=== PATIENT | male | born 1970 | race Caucasian/White ===

== ENCOUNTER → 2017-06-17 | Outpatient (CLI) | payer OTHER ==
--- NOTE | 2017-06-17 08:59 | DIAGNOSTIC IMAGING REPORT ---
THYROID ULTRASONOGRAPHY CLINICAL HISTORY: MULTIPLE THYROID NODULES COMPARISON STUDY: 06/12/2016 FINDINGS: The right lobe measures 54 x 14 x 18 mm. The left lobe measures 44 x 16 x 17 mm. There are tiny bilateral thyroid nodules, none of which exceed 5 mm in size. These remain similar to the preceding study with the exception of a new 5 mm circumscribed hypoechoic left lobe nodule. 12 month follow-up is recommended. IMPRESSION: Multinodular thyroid gland with a new 5 mm hypoechoic left lobe nodule. 12 month follow-up is recommended. Electronically signed by: Avelino Gaviria M.D. 06/17/2017 8:58 AM Dictated Date/Time: 06/17/2017 8:55 AM
== END | disposition home or self-care (01) ==
LOC: C.ULTRBC 08:25
PROVIDERS: ATTEND Internal Medicine Geriatric Medicine
DX: E04.2 Nontoxic multinodular goiter (principal)

== ENCOUNTER → 2018-03-10 | Outpatient (CLI) | payer OTHER ==
[2018-03-10 17:26] LABS: BLOOD UREA NITROGEN 21 mg/dl (7-18); CALCIUM 9.1 mg/dl (8.5-10.1); CARBON DIOXIDE 23 mmol/L (21-32); CHOLESTEROL 244 mg/dl (0-200); CREATININE 1.23 mg/dl (0.60-1.40); GLUCOSE 100 mg/dl (70-99); POTASSIUM 3.9 mmol/L (3.5-5.1); SODIUM 138 mmol/L (136-145)
[2018-03-10 17:36] LABS: LDL CHOLESTEROL CALCULATED 147 mg/dl
== END | disposition home or self-care (01) ==
LOC: C.LABBC 15:06
PROVIDERS: ATTEND Internal Medicine Geriatric Medicine
DX: R30.0 Dysuria (principal); R10.9 Unspecified abdominal pain; E78.5 Hyperlipidemia, unspecified; E04.2 Nontoxic multinodular goiter

== ENCOUNTER → 2018-03-16 | Outpatient (CLI) | payer OTHER ==
--- NOTE | 2018-03-16 09:58 | DIAGNOSTIC IMAGING REPORT ---
ABDOMINAL ULTRASOUND COMPLETE HISTORY: Generalized abdominal pain.. COMPARISON: None. FINDINGS: Pancreas: The pancreatic tail is obscured by overlying bowel gas. The remaining portions of the pancreas are within normal limits. Liver: The liver is echogenic consistent with fatty change. Gallbladder: No gallbladder wall thickening. No gallstones. CBD: 3 mm. Kidneys: No hydronephrosis. Spleen: Normal in size. Aorta: Normal in caliber. IVC: Patent. IMPRESSION: No significant abnormality identified within the within the abdomen. Electronically signed by: Sg Momin M.D. 03/16/2018 9:57 AM Dictated Date/Time: 03/16/2018 9:56 AM
== END | disposition home or self-care (01) ==
LOC: C.ULTRBC 09:31
PROVIDERS: ATTEND Internal Medicine Geriatric Medicine
DX: R10.9 Unspecified abdominal pain (principal)

== ENCOUNTER → 2018-06-29 | Outpatient (CLI) | payer OTHER ==
--- NOTE | 2018-06-29 08:20 | DIAGNOSTIC IMAGING REPORT ---
ULTRASOUND OF THE THYROID GLAND CLINICAL HISTORY: Thyroid nodules. COMPARISON STUDY: Thyroid ultrasound dated 06/17/2017. TECHNIQUE: Real-time, grayscale, and color flow sonography of the thyroid gland is performed utilizing a high-frequency linear transducer. Images are reviewed in the transverse and longitudinal planes. FINDINGS: Right lobe: The right lobe of the thyroid gland is normal in size and homogeneous in echotexture, measuring 4.4 x 1.7 x 1.7 cm. There are 3 subcentimeter hypoechoic nodules which measure up to 4 mm. Left lobe: The left lobe of the thyroid gland is normal in size and homogeneous in echotexture, measuring 4.4 x 1.5 x 1.6 cm. A subcentimeter hypoechoic nodule in the upper pole measures up to 5 mm. Isthmus: The thyroid isthmus is normal in appearance and measures 0.2 cm in AP diameter. IMPRESSION: 1. The thyroid gland is normal in size and homogeneous in echotexture. 2. Scattered subcentimeter hypoechoic nodules are of low suspicion and not significantly changed from previous. Electronically signed by: Brenden Noland M.D. 06/29/2018 8:18 AM Dictated Date/Time: 06/29/2018 8:13 AM
== END | disposition home or self-care (01) ==
LOC: C.ULTRBC 07:48
PROVIDERS: ATTEND Internal Medicine Geriatric Medicine
DX: E04.2 Nontoxic multinodular goiter (principal)